=== PATIENT | female | born 1970 | race Caucasian/White ===

== ENCOUNTER 2020-08-12 22:15 | Emergency (ER) | payer OTHER ==
--- NOTE | 2020-08-13 02:29 | ER ---
Nurse's Notes [facility] Name: Sheri Soto Age: 50 yrs Sex: Female : 1970 Arrival Date: 08/12/2020 Time: 22:19 Bed Waiting Private MD: Diagnosis: Presentation: 08/12 23:23 Chief complaint: Patient states: has had rectal bleeding for months, intermittent, has iw gotten worse over past couple days, is bright red, also feels SOB and having palpitations, hx of anemia, also feels light headed. Coronavirus screen: At this time, the client does not indicate any symptoms associated with coronavirus-19. Ebola Screen: Patient negative for fever greater than or equal to 101.5 degrees Fahrenheit, and additional compatible Ebola Virus Disease symptoms Patient denies exposure to infectious person. Patient denies travel to an Ebola-affected area in the 21 days before illness onset. No symptoms or risks identified at this time. Initial Sepsis Screen: Does the patient meet any 2 criteria? No. Patient's initial sepsis screen is negative. Does the patient have a suspected source of infection? No. Patient's initial sepsis screen is negative. Risk Assessment: Do you want to hurt yourself or someone else? Patient reports no desire to harm self or others. Onset of symptoms was August 10, 2020. 23:23 Method Of Arrival: Ambulatory iw 23:23 Acuity: MELISA 3 iw Historical: - Allergies: 23:25 No Known Allergies; iw - Home Meds: 23:25 lisinopril Oral once daily [Active]; iw - PMHx: 23:25 Diverticulitis; Hernia; Hypertension; iw - PSHx: 23:25 Tubal ligation; Cholecystectomy; iw Vital Signs: 23:36 BP 132 / 76; Pulse 77; Resp 16; Temp 97.9; Pulse Ox 98% ; Weight 78.47 kg; Height 5 ft. iw 4 in. (162.56 cm); Pain 0/10; 23:36 Body Mass Index 29.70 (78.47 kg, 162.56 cm) iw ED Course: 22:19 Patient arrived in ED. es 23:24 Triage completed. iw Administered Medications: No medications were administered Outcome: 08/13 02:28 Patient left the ED. iw Signatures: Yesenia, Ivelisse es Jorge, Rosa, RN RN iw
[2020-08-13 02:44] VITALS: BP 132/76; TEMP 97.9; O2SAT 98
== END 2020-08-13 02:28 | disposition left against medical advice (07) ==
LOC: ER 22:15
DX: Z53.21 Procedure and treatment not carried out due to patient leaving prior to being seen by health care provider (principal)
CPT/HCPCS: 99281